=== PATIENT | female | born 1975 | race Caucasian/White ===

== ENCOUNTER 2017-10-23 12:28 | Emergency (ER) | payer OTHER ==
[~2017-10-23] VITALS: Ht 162.6 cm; Wt 63.5 kg
[2017-10-23 12:41] VITALS: BP 145/97
--- NOTE | 2017-10-23 12:49 | NUR ---
PT BIB WHEELCHAIR TO [facility]
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
--- NOTE | 2017-10-23 13:05 | NUR ---
PT TAKEN TO XRAY
--- NOTE | 2017-10-23 13:37 | NUR ---
PT TO BE MOVED TO BED 2
[2017-10-23] MEDS ORDERED: MORPHINE SULFATE 4 MG/ML SYR IM ONE (13:55)
[2017-10-23 14:27] VITALS: BP 145/97
--- NOTE | 2017-10-23 14:27 | NUR ---
Patient discharged with v/s stable. Written and verbal after care instructions given and explained. Patient verbalized understanding. Ambulatory with steady gait. All questions addressed prior to discharge. Advised to follow up with PMD.
== END 2017-10-23 14:27 | disposition home or self-care (01) ==
LOC: MED 12:28
DX: S92.351A Displaced fracture of fifth metatarsal bone, right foot, initial encounter for closed fracture (principal); X58.XXXA Exposure to other specified factors, initial encounter; Y93.89 Activity, other specified; Y92.89 Other specified places as the place of occurrence of the external cause; Y99.8 Other external cause status; Z90.710 Acquired absence of both cervix and uterus; Z90.49 Acquired absence of other specified parts of digestive tract; Z88.8 Allergy status to other drugs, medicaments and biological substances
CPT/HCPCS: 29515; 73610; 73630; 96372; 99284; J2270